=== PATIENT | male | born 1960 | race African-American/Black ===

== ENCOUNTER 2016-09-17 11:38 | Inpatient (IN) | payer OTHER ==
[2016-09-17 12:08] VITALS: BMI 25.0
[2016-09-17] MEDS ORDERED: LOPERAMIDE HCL 2 MG CAPSULE PO PRN (15:02)
[2016-09-17] MEDS ORDERED: P-EPHED 60MG/TRIPROLIDI 2.5MG TABLET PO PRN (15:02)
[2016-09-17] MEDS ORDERED: chlordiazePOXIDE HCL 25 MG CAPSULE PO PRN (15:02)
[2016-09-17] MEDS ORDERED: hydrOXYzine PAMOATE 50 MG CAPSULE (FP) PO PRN (15:02)
[2016-09-17] MEDS ORDERED: guaiFENesin/D-METHORPHAN HB 10 ML UNIT-DOSE CUPS PO PRN (15:02)
[2016-09-17] MEDS ORDERED: MAGNESIUM HYDROX 2400MG/30ML ORAL SUSPENSION 30 ML CUP PO PRN (15:02)
[2016-09-17] MEDS ORDERED: MAG HYDROX/AL HYDROX/SIMETH 30 ML UNIT-DOSE CUP PO PRN (15:02)
[2016-09-17] MEDS ORDERED: MENTHOL/PHENOL 1 EACH UD MM PRN (15:02)
[2016-09-17] MEDS ORDERED: NICOTINE POLACRILEX 2 MG GUM BUC PRN (15:02)
[2016-09-17] MEDS ORDERED: MAGNESIUM CITRATE 300 ML BOTTLE PO PRN (15:02)
[2016-09-17] MEDS ORDERED: ACETAMINOPHEN 325 MG TABLET (FP) PO PRN (15:02)
--- NOTE | 2016-09-17 15:02 | HP ---
CIWA Score - CIWA Score Nausea/Vomitin Muscle Tremors: 4-Moderate,w/Arms Extend Anxiety: 4-Mod. Anxious/Guarded Agitation: 4-Moderately Restless Paroxysmal Sweats: 3 Orientation: 0-Oriented Tacttile Disturbances: 1-Very Mild Itch/Numbness Auditory Disturbances: 0-None Visual Disturbances: 0-None Headache: 1-Very Mild CIWA-Ar Total Score: 20 Admission ROS BHS - HPI Chief Complaint: alcohol withdrawwal sx, requesting inpatient detox from alcohol and cocaine Allergies/Adverse Reactions: Allergies Allergy/AdvReac Type Severity Reaction Status Date / Time No Known Allergies Allergy Verified 09/17/16 13:08 History of Present Illness: 56 yo m with h/o chronic alcoholism and cocaine dependence [facility] as he has ISELA - sweats, tremors, h/o seizures, no on any medication 10years ago, nausea, smokes $80 cocaine daily last used alcohol and cocaine today. smokes 1/2 PPD PMHX asthma has pump he uses. no suicidal ideation, no psychiatric illness, no suicide attempts the past. Exam Limitations: No Limitations - Ebola screening Have you traveled outside of the country in the last 21 days: No Have you had contact with anyone from an Ebola affected area: No Have you been sick,other than usual withdrawal symptoms: No Do you have a fever: No - Review of Systems Constitutional: Diaphoresis, Loss of Appetite, Changes in sleep, Weakness, Weight Stable EENT: reports: No Symptoms Reported Respiratory: reports: No Symptoms reported, Wheezing (when he has asthma) Cardiac: reports: No Symptoms Reported GI: reports: Diarrhea, Nausea, Poor Appetite, Poor Fluid Intake, Vomiting : reports: No Symptoms Reported Musculoskeletal: reports: No Symptoms Reported Integumentary: reports: Flushing, Sweating Neuro: reports: No Symptoms reported Endocrine: reports: No Symptoms Reported Hematology: reports: No Symptoms Reported Psychiatric: reports: No Sypmtoms Reported Other Systems: Reviewed and Negative Patient History - Patient Medical History Hx Anemia: No Hx Asthma: Yes Hx Chronic Obstructive Pulmonary Disease (COPD): No Hx Cancer: No Hx Cardiac Disorders: No Hx Congestive Heart Failure: No Hx Hypertension: No Hx Hypercholesterolemia: No Hx Pacemaker: No HX Cerebrovascular Accident: No Hx Seizures: No Hx Diabetes: No Hx Gastrointestinal Disorders: No Hx Liver Disease: No Hx Genitourinary Disorders: No Hx Sexually Transmitted Disorders: No Hx Renal Disease (ESRD): No Hx Thyroid Disease: No Hx Human Immunodeficiency Virus (HIV): No Hx Hepatitis C: No Hx Depression: No Hx Suicide Attempt: No Hx Bipolar Disorder: No Hx Schizophrenia: No - Patient Surgical History Past Surgical History: No Hx Neurologic Surgery: No Hx Cataract Extraction: No Hx Cardiac Surgery: No Hx Lung Surgery: No Hx Breast Surgery: No Hx Breast Biopsy: No Hx Abdominal Surgery: No Hx Appendectomy: No Hx Cholecystectomy: No Hx Genitourinary Surgery: No Hx Section: No Hx Orthopedic Surgery: No Anesthesia Reaction: No - PPD History Previous Implant?: Yes Documented Results: Negative w/o proof Date: 05/23/13 PPD to be Administered?: Yes - Reproductive History Patient is a Female of Child Bearing Age (11 -55 yrs old): No Patient : No - Smoking Cessation Smoking history: Current every day smoker Have you smoked in the past 12 months: Yes Aproximately how many cigarettes per day: 10 Cigars Per Day: 0 Hx Chewing Tobacco Use: No Initiated information on smoking cessation: Yes 'Breaking Loose' booklet given: 09/17/16 - Substance & Tx. History Hx Alcohol Use: Yes Hx Substance Use: Yes Substance Use Type: Alcohol, Cocaine Hx Substance Use Treatment: Yes (h/o inpatient detox did not complete, [facility]) - Substances Abused Cocaine Route: Smoking Frequency: Daily Amount used: $100.00 Age of first use: 28 Date of Last Use: 09/16/16 Alcohol Route: Oral Frequency: Daily Amount used: 6 18oz Beer, Age of first use: 16 Date of Last Use: 09/17/16 Family Disease History - Family Disease History Family Disease History: Other: Father (alcohol), Mother (heroin overdose) Admission Physical Exam BHS - Vital Signs Vital Signs: Vital Signs - 24 hr 09/17/16 12:02 Temperature 97.1 F L Pulse Rate 79 Respiratory 20 Rate Blood Pressure 129/81 - Physical General Appearance: Yes: Nourished, Appropriately Dressed, Disheveled, Thin, Tremorous, Irritable, Sweating, Anxious HEENTM: Yes: Within Normal Limits, EOMI, Hearing grossly Normal, Normal ENT Inspection, Normocephalic, Normal Voice, FELIPE, Pharynx Normal Respiratory: Yes: Within Normal Limits, Chest Non-Tender, Lungs Clear, Normal Breath Sounds, No Respiratory Distress, No Accessory Muscle Use Neck: Yes: Within Normal Limits, No masses,lesions,Nodules, Supple, Trachea in good position Breast: Yes: Breast Exam Deferred, Breasts Symetrical Cardiology: Yes: Within Normal Limits, Regular Rhythm, Regular Rate, S1, S2 Abdominal: Yes: Within Normal Limits, Normal Bowel Sounds, Non Tender, Soft, Protuberent Genitourinary: Yes: Within Normal Limits Back: Yes: Within Normal Limits, Normal Inspection Musculoskeletal: Yes: Within Normal Limits, full range of Motion, Gait Steady Extremities: Yes: Normal Capillary Refill, Normal Inspection, Normal Range of Motion, Tremors Neurological: Yes: case filler II-XII NML intact, Fully Oriented, Alert, Motor Strength 5/5, Normal Response, Depressed Affect Integumentary: Yes: Normal Color, Warm, Diaphoresis, Moist Lymphatic: Yes: Within Normal Limits - Addiitonal Findings: withdrwal sx present, - Diagnostic (1) Asthma Current Visit: No Status: Active (2) Alcohol dependence with uncomplicated withdrawal Current Visit: Yes Status: Acute (3) Cannabis dependence, uncomplicated Current Visit: Yes Status: Acute (4) Cocaine dependence Current Visit: Yes Status: Acute (5) Nicotine dependence Current Visit: Yes Status: Acute Cleared for Admission [facility] - Detox or Rehab [facility] Level of Care: Medically Managed Detox Regimen/Protocol: Librium [facility] Breath Alcohol Content Breath Alcohol Content: 0 Urine Drug Screen - Results Drug Screen Negative: No Urine Drug Screen Results: REYNOLD-Cocaine
[2016-09-17] MEDS ORDERED: ALBUTEROL SO4 6.7 GM HFA INHALER IH PRN (15:06)
[2016-09-17] MEDS ORDERED: chlordiazePOXIDE HCL 25 MG CAPSULE PO ONE (15:23)
[2016-09-17] MEDS: NICOTINE 14 MG/24 HOURS TOPICAL PATCH TD SCH (17:28)
[2016-09-17] MEDS: chlordiazePOXIDE HCL 25 MG CAPSULE PO SCH ×2 (17:30→22:04)
[2016-09-17 20:32] LABS: URINE APPEARANCE CLEAR; URINE BILIRUBIN NEGATIVE (NEGATIVE); URINE BLOOD NEGATIVE (NEGATIVE); URINE COLOR STRAW; URINE GLUCOSE (UA) NEGATIVE (NEGATIVE); URINE KETONE NEGATIVE (NEGATIVE); URINE LEUK ESTERASE NEGATIVE (NEGATIVE); URINE NITRITE NEGATIVE (NEGATIVE); URINE PROTEIN NEGATIVE (NEGATIVE); URINE UROBILINOGEN NEGATIVE E.U./dl (0.2-1.0)
[2016-09-17] MEDS: diphenhydrAMINE HCL 50 MG CAPSULE PO PRN (22:03)
[2016-09-17] MEDS: THIAMINE HCL 100 MG TABLET (FP) PO SCH (22:04)
[2016-09-18] MEDS: chlordiazePOXIDE HCL 25 MG CAPSULE PO SCH ×4 (05:42→22:03)
[2016-09-18] MEDS: IBUPROFEN 400 MG TABLET (FP) PO PRN ×2 (05:44→17:18)
[2016-09-18] MEDS: PRENATAL VITAMINS W/ FOLIC ACID TABLET (FP) PO SCH (10:07)
[2016-09-18] MEDS: NICOTINE 14 MG/24 HOURS TOPICAL PATCH TD SCH (10:08)
[2016-09-18 10:11] LABS: MCH 27.9 pg (25.7-33.7); MCHC 32.3 g/dl (32.0-35.9); MEAN CELL VOLUME 86.4 fl (80-96); MEAN PLT VOLUME 9.6 fl (7.5-11.1); PLATELET COUNT 180 K/MM3 (134-434); RDW 15.5 % (11.9-15.9)
[2016-09-18 10:43] LABS: ALBUMIN 3.9 g/dl (3.4-5.0); ALK PHOS 73 U/L (45-117); ANION GAP 10 (8-16); BILIRUBIN,TOTAL 0.4 mg/dL (0.2-1.0); CALCIUM 8.8 mg/dL (8.5-10.1); CO2 26 mmol/L (21-32); GLUCOSE,RANDOM 82 mg/dL (74-106); SGOT/AST 21 U/L (15-37); SGPT/ALT 16 U/L (12-78); TOT PROT 7.1 g/dl (6.4-8.2)
--- NOTE | 2016-09-18 11:14 | CONSULT ---
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 Substance Abuse History: - Smoking Cessation. Smoking history: Current every day smoker. Have you smoked in the past 12 months: Yes. Aproximately how many cigarettes per day: 10. Cigars Per Day: 0. Hx Chewing Tobacco Use: No. Initiated information on smoking cessation: Yes. 'Breaking Loose' booklet given : 09/17/16. - Substance & Tx. History. Hx Alcohol Use: Yes. Hx Substance Use : Yes. Substance Use Type: Alcohol, Cocaine. Hx Substance Use Treatment: Yes ( h/o inpatient detox did not complete, [facility]). - Substances Abused. Cocaine. Route: Smoking. Frequency: Daily. Amount used : $100.00. Age of first use: 28. Date of Last Use: 09/16/16. Alcohol. Route: Oral. Frequency: Daily. Amount used: 6 18oz Beer,. Age of first use: 16. Date of Last Use: 09/17/16. Confirmed by the patient in my interview. Medical History: Bronchial asthma. Psychiatric History: Patient denies. Physical/Sexual Abuse/Trauma History: Patient denies. Additional Comment: Urine Drug Screen Results: REYNOLD-Cocaine.Noted. Mental Status Exam - Mental Status Exam Alert and Oriented to: Time, Place, Person Cognitive Function: Good Patient Appearance: Well Groomed Mood: Hopeful, Euthymic Affect: Appropriate, Normal Range Patient Behavior: Fatigued, Talkative, Appropriate, Cooperative Speech Pattern: Clear, Appropriate Voice Loudness: Normal Thought Process: Intact, Goal Oriented Thought Disorder: Not Present Hallucinations: Denies Suicidal Ideation: Denies Homicidal Ideation: Denies Insight/Judgement: Poor Sleep: Fair Appetite: Fair Muscle strength/Tone: Normal Gait/Station: Normal Psychiatric Findings - Problem List ([place] 1, 2,3) (1) Alcohol dependence with uncomplicated withdrawal Current Visit: Yes Status: Acute (2) Cocaine dependence Current Visit: Yes Status: Acute (3) Nicotine dependence Current Visit: Yes Status: Acute (4) Asthma Current Visit: No Status: Chronic - Initial Treatment Plan Initial Treatment Plan: Psychoeducation.Detoxification.Observation.
--- NOTE | 2016-09-18 12:26 | PN ---
S CIWA - CIWA Score Nausea/Vomitin-No Nausea/No Vomiting Muscle Tremors: 3 Anxiety: 4-Mod. Anxious/Guarded Agitation: 4-Moderately Restless Paroxysmal Sweats: 3 Orientation: 0-Oriented Tacttile Disturbances: 0-None Auditory Disturbances: 0-None Visual Disturbances: 0-None Headache: 0-None Present CIWA-Ar Total Score: 14 BHS Progress Note (SOAP) Subjective: anxiety,tremors,sweating,interrupted sleep,restless Objective: 09/18/16 12:23 Vital Signs - 8 hr 09/18/16 09/18/16 06:13 09:30 Temperature 97.1 F L 97.8 F Pulse Rate 61 69 Respiratory 18 16 Rate Blood Pressure 97/71 88/65 Laboratory Tests 09/17/16 09/18/16 09/18/16 19:45 06:00 06:00 WBC 4.0 RBC 5.19 Hgb 14.5 Hct 44.9 MCV 86.4 MCHC 32.3 RDW 15.5 Plt Count 180 MPV 9.6 Sodium 143 Potassium 4.2 Chloride 107 Carbon Dioxide 26 Anion Gap 10 BUN 9 D Creatinine 1.0 Creat Clearance w eGFR > 60 Random Glucose 82 Calcium 8.8 Total Bilirubin 0.4 D AST 21 ALT 16 Alkaline Phosphatase 73 Total Protein 7.1 Albumin 3.9 Urine Color Straw Urine Appearance Clear Urine pH 5.0 Ur Specific [place] 1.008 Urine Protein Negative Urine Glucose (UA) Negative Urine Ketones Negative Urine Blood Negative Urine Nitrite Negative Urine Bilirubin Negative Urine Urobilinogen Negative Ur Leukocyte Esterase Negative labs noted Assessment: 09/18/16 12:23 continue detox Plan: continue detox
--- NOTE | 2016-09-18 12:41 | EKG ---
Test Reason : Blood Pressure : / mmHG Vent. Rate : 069 BPM Atrial Rate : 069 BPM P-R Int : 158 ms QRS Dur : 080 ms QT Int : 376 ms P-R-T Axes : 143 -24 125 degrees QTc Int : 402 ms UNUSUAL P AXIS, POSSIBLE ECTOPIC ATRIAL RHYTHM SEPTAL INFARCT , AGE UNDETERMINED LATERAL INFARCT , AGE UNDETERMINED ABNORMAL ECG NO PREVIOUS ECGS AVAILABLE Confirmed by BERLIN CANADA MD ([id number]) on 09/18/2016 12:41:45 PM Referred By: Confirmed By:BERLIN CANADA MD
[2016-09-18] MEDS: diphenhydrAMINE HCL 50 MG CAPSULE PO PRN (22:03)
[2016-09-18] MEDS: THIAMINE HCL 100 MG TABLET (FP) PO SCH (22:03)
[2016-09-19] MEDS: chlordiazePOXIDE HCL 25 MG CAPSULE PO SCH ×2 (06:10→10:02)
[2016-09-19] MEDS: IBUPROFEN 400 MG TABLET (FP) PO PRN ×2 (08:33→22:04)
[2016-09-19] MEDS: NICOTINE 14 MG/24 HOURS TOPICAL PATCH TD SCH (10:02)
[2016-09-19] MEDS: PRENATAL VITAMINS W/ FOLIC ACID TABLET (FP) PO SCH (10:02)
--- NOTE | 2016-09-19 10:53 | PN ---
S CIWA - CIWA Score Nausea/Vomitin-No Nausea/No Vomiting Muscle Tremors: 3 Anxiety: 2 Agitation: 2 Paroxysmal Sweats: 3 Orientation: 0-Oriented Tacttile Disturbances: 0-None Auditory Disturbances: 0-None Visual Disturbances: 0-None Headache: 0-None Present CIWA-Ar Total Score: 10 BHS Progress Note (SOAP) Subjective: SWEATING,INTERRUPTED SLEEP,ANXIETY,TREMORS,RESTLESS Objective: 09/19/16 10:50 Vital Signs - 8 hr 09/19/16 09/19/16 09/19/16 03:24 06:04 09:13 Temperature 96.2 F L 97.0 F L Pulse Rate 70 66 Respiratory 18 16 18 Rate Blood Pressure 113/74 102/70 Laboratory Tests 09/17/16 09/18/16 09/18/16 19:45 06:00 06:00 WBC 4.0 RBC 5.19 Hgb 14.5 Hct 44.9 MCV 86.4 MCHC 32.3 RDW 15.5 Plt Count 180 MPV 9.6 Sodium 143 Potassium 4.2 Chloride 107 Carbon Dioxide 26 Anion Gap 10 BUN 9 D Creatinine 1.0 Creat Clearance w eGFR > 60 Random Glucose 82 Calcium 8.8 Total Bilirubin 0.4 D AST 21 ALT 16 Alkaline Phosphatase 73 Total Protein 7.1 Albumin 3.9 Urine Color Straw Urine Appearance Clear Urine pH 5.0 Ur Specific [place] 1.008 Urine Protein Negative Urine Glucose (UA) Negative Urine Ketones Negative Urine Blood Negative Urine Nitrite Negative Urine Bilirubin Negative Urine Urobilinogen Negative Ur Leukocyte Esterase Negative RPR Titer 09/18/16 06:00 WBC RBC Hgb Hct MCV MCHC RDW Plt Count MPV Sodium Potassium Chloride Carbon Dioxide Anion Gap BUN Creatinine Creat Clearance w eGFR Random Glucose Calcium Total Bilirubin AST ALT Alkaline Phosphatase Total Protein Albumin Urine Color Urine Appearance Urine pH Ur Specific [place] Urine Protein Urine Glucose (UA) Urine Ketones Urine Blood Urine Nitrite Urine Bilirubin Urine Urobilinogen Ur Leukocyte Esterase RPR Titer Nonreactive LABS NOTED Assessment: 09/19/16 10:52 WITHDRAWAL SX. Plan: CONTINUE DETOX
[2016-09-19] MEDS: chlordiazePOXIDE 5 MG CAPSULE PO SCH ×2 (17:44→22:05)
[2016-09-19] MEDS: diphenhydrAMINE HCL 50 MG CAPSULE PO PRN (22:05)
[2016-09-19] MEDS: THIAMINE HCL 100 MG TABLET (FP) PO SCH (22:05)
[2016-09-20] MEDS: chlordiazePOXIDE 5 MG CAPSULE PO SCH ×2 (05:54→10:09)
[2016-09-20 09:45] VITALS: BP 112/75; PULSE 78; TEMP 98.1
--- NOTE | 2016-09-20 09:49 | PN ---
BHS Progress Note (SOAP) Subjective: SWEATS, INTERRUPTED SLEEP, ANXIETY, TREMORS, NAUSEA Objective: 09/20/16 09:48 Vital Signs - 8 hr 09/20/16 09/20/16 09/20/16 03:32 06:18 09:44 Temperature 96.1 F L 98.1 F Pulse Rate 69 78 Respiratory 18 16 20 Rate Blood Pressure 100/70 112/75 Laboratory Tests 09/17/16 09/18/16 09/18/16 19:45 06:00 06:00 WBC 4.0 RBC 5.19 Hgb 14.5 Hct 44.9 MCV 86.4 MCHC 32.3 RDW 15.5 Plt Count 180 MPV 9.6 Sodium 143 Potassium 4.2 Chloride 107 Carbon Dioxide 26 Anion Gap 10 BUN 9 D Creatinine 1.0 Creat Clearance w eGFR > 60 Random Glucose 82 Calcium 8.8 Total Bilirubin 0.4 D AST 21 ALT 16 Alkaline Phosphatase 73 Total Protein 7.1 Albumin 3.9 Urine Color Straw Urine Appearance Clear Urine pH 5.0 Ur Specific [place] 1.008 Urine Protein Negative Urine Glucose (UA) Negative Urine Ketones Negative Urine Blood Negative Urine Nitrite Negative Urine Bilirubin Negative Urine Urobilinogen Negative Ur Leukocyte Esterase Negative RPR Titer 09/18/16 06:00 WBC RBC Hgb Hct MCV MCHC RDW Plt Count MPV Sodium Potassium Chloride Carbon Dioxide Anion Gap BUN Creatinine Creat Clearance w eGFR Random Glucose Calcium Total Bilirubin AST ALT Alkaline Phosphatase Total Protein Albumin Urine Color Urine Appearance Urine pH Ur Specific [place] Urine Protein Urine Glucose (UA) Urine Ketones Urine Blood Urine Nitrite Urine Bilirubin Urine Urobilinogen Ur Leukocyte Esterase RPR Titer Nonreactive Assessment: 09/20/16 09:48 WITHDRAWAL SX Plan: CONT DETOX
[2016-09-20] MEDS: PRENATAL VITAMINS W/ FOLIC ACID TABLET (FP) PO SCH (10:09)
[2016-09-20] MEDS: NICOTINE 14 MG/24 HOURS TOPICAL PATCH TD SCH (10:09)
--- NOTE | 2016-09-20 10:29 | PN ---
[facility] Progress Note Note: Patient reports he needs to leave to go home today, family scheduled [employer] pick[employer] to attend [place] in am, patient has not symptoms of withdrwal after AM medications, bp stable no tachycadia. medically stable for regualr discharge
--- NOTE | 2016-09-20 10:31 | DS ---
[facility] Detox Discharge Summary Admission Date: 09/17/16 Discharge Date: 09/20/16 - History Present History: Alcohol Dependence, Cannabis Dependence, Cocaine Dependence Pertinent Past History: nicotine dependence w withdrawal sx, anxiety, depression and insomnia - Physical Exam Results Vital Signs: Vital Signs Temperature 98.1 F 09/20/16 09:44 Pulse Rate 78 09/20/16 09:44 Respiratory Rate 20 09/20/16 09:44 Blood Pressure 112/75 09/20/16 09:44 O2 Sat by Pulse Oximetry (%) Pertinent Admission Physical Exam Findings: withdrawal sx - Treatment Hospital Course: Detox Protocol Followed, Detoxed Safely, Responded well, Discharged Condition Good, Rehab Referral Accepted Patient has Accepted a Rehab Referral to: Yes - Medication Discharge Medications: Ambulatory Orders Albuterol Sulfate Inhaler - [Ventolin HFA Inhaler -] 1 - 2 inh PO Q4H #1 inhaler 09/20/16 - Diagnosis (1) Asthma Current Visit: No Status: Chronic (2) Alcohol dependence with uncomplicated withdrawal Current Visit: Yes Status: Acute (3) Cannabis dependence, uncomplicated Current Visit: Yes Status: Acute (4) Cocaine dependence Current Visit: Yes Status: Acute (5) Nicotine dependence Current Visit: Yes Status: Acute - AMA Did Patient Leave Against Medical Advice: No
[2016-09-20] MEDS ORDERED: chlordiazePOXIDE HCL 10 MG CAPSULE PO SCH (17:00)
== END 2016-09-20 10:50 | disposition home or self-care (01) | DRG 774 ==
LOC: YASAS 11:38 → Y3N 14:52
PROVIDERS: ADMIT Internal Medicine; ATTEND Internal Medicine
PROC: HZ2ZZZZ Detoxification Services for Substance Abuse Treatment (ICD-10-PCS; principal; 2016-09-20)
DX: F10.230 Alcohol dependence with withdrawal, uncomplicated (principal); F14.20 Cocaine dependence, uncomplicated; F12.20 Cannabis dependence, uncomplicated; F17.210 Nicotine dependence, cigarettes, uncomplicated; J45.909 Unspecified asthma, uncomplicated
CPT/HCPCS: 36415; 80053; 81003; 85027; 86593; 93005; 93010

== ENCOUNTER 2020-11-28 10:48 | Inpatient (IN) | payer OTHER ==
[2020-11-28 12:10] VITALS: BMI 25.1
[2020-11-28] MEDS ORDERED: chlordiazePOXIDE HCL 25 MG CAPSULE PO PRN (12:10)
[2020-11-28] MEDS ORDERED: MENTHOL/PHENOL 1 EACH UD MM PRN (12:10)
[2020-11-28] MEDS ORDERED: MAG HYDROX/AL HYDROX/SIMETH 30 ML UNIT-DOSE CUP PO PRN (12:10)
[2020-11-28] MEDS ORDERED: METHOCARBAMOL 500 MG TABLET PO PRN (12:10)
[2020-11-28] MEDS ORDERED: NICOTINE POLACRILEX 2 MG GUM BUC PRN (12:10)
[2020-11-28] MEDS ORDERED: IBUPROFEN 400 MG TABLET (FP) PO PRN (12:10)
[2020-11-28] MEDS ORDERED: MAGNESIUM CITRATE 300 ML BOTTLE PO PRN (12:10)
[2020-11-28] MEDS ORDERED: ONDANSETRON *ODT* 4 MG TABLET SL PRN (12:10)
[2020-11-28] MEDS ORDERED: BISMUTH SUBSALICYLATE 262 MG/15 ML BTL PO PRN (12:10)
[2020-11-28] MEDS ORDERED: MAGNESIUM HYDROX 2400MG/30ML ORAL SUSPENSION 30 ML CUP PO PRN (12:10)
[2020-11-28] MEDS ORDERED: ACETAMINOPHEN 325 MG TABLET (FP) PO PRN ×2 (12:10)
[2020-11-28] MEDS: chlordiazePOXIDE HCL 25 MG CAPSULE PO SCH ×3 (12:30→22:13)
[2020-11-28] MEDS: ALBUTEROL SO4 HFA INHALER IH SCH ×3 (12:31→22:13)
[2020-11-28] MEDS: hydrOXYzine PAMOATE 25 MG CAPSULE (FP) PO SCH ×3 (13:15→22:13)
[2020-11-28 14:48] LABS: HEMATOCRIT 41.1 % (35.4-49); HEMOGLOBIN 13.6 GM/dL (11.7-16.9); MCH 27.5 pg (25.7-33.7); MEAN CELL VOLUME 83.5 fl (80-96); MEAN PLT VOLUME 8.7 fl (7.5-11.1); PLATELET COUNT 247 K/MM3 (134-434); RBC 4.93 M/mm3 (4.00-5.60); RDW 14.5 % (11.9-15.9); WHITE BLOOD COUNT 4.1 K/mm3 (4.0-10.0)
[2020-11-28 14:58] LABS: BLOOD UREA NITROGEN 14.4 mg/dL (7-18); CALCIUM 9.1 mg/dL (8.5-10.1)
[2020-11-28 14:59] LABS: ALBUMIN 3.8 g/dl (3.4-5.0)
[2020-11-28 15:01] LABS: CREATININE 0.9 mg/dL (0.55-1.3)
[2020-11-28 15:03] LABS: BILIRUBIN,TOTAL 0.3 mg/dL (0.2-1); TOT PROT 7.1 g/dl (6.4-8.2)
[2020-11-28] MEDS ORDERED: MELATONIN 5 MG TABLETS PO SCH (22:00)
[2020-11-28] MEDS: THIAMINE HCL 100 MG TABLET (FP) PO SCH (22:13)
[2020-11-29] MEDS: ALBUTEROL SO4 HFA INHALER IH SCH ×6 (02:13→22:35)
[2020-11-29] MEDS: hydrOXYzine PAMOATE 25 MG CAPSULE (FP) PO SCH ×5 (05:44→22:39)
[2020-11-29] MEDS: chlordiazePOXIDE HCL 25 MG CAPSULE PO SCH ×4 (05:45→23:15)
[2020-11-29] MEDS: NICOTINE 21 MG/24 HOURS TOPICAL PATCH TD SCH (10:14)
[2020-11-29] MEDS: PRENATAL VITAMINS W/ FOLIC ACID TABLET (FP) PO SCH (10:14)
[2020-11-29] MEDS: THIAMINE HCL 100 MG TABLET (FP) PO SCH (22:38)
[2020-11-30] MEDS: ALBUTEROL SO4 HFA INHALER IH SCH ×6 (00:38→22:24)
[2020-11-30] MEDS: chlordiazePOXIDE HCL 25 MG CAPSULE PO SCH ×4 (05:39→22:22)
[2020-11-30] MEDS: hydrOXYzine PAMOATE 25 MG CAPSULE (FP) PO SCH ×5 (05:39→22:24)
[2020-11-30] MEDS: PRENATAL VITAMINS W/ FOLIC ACID TABLET (FP) PO SCH (10:43)
[2020-11-30] MEDS: NICOTINE 21 MG/24 HOURS TOPICAL PATCH TD SCH (10:45)
[2020-11-30] MEDS: THIAMINE HCL 100 MG TABLET (FP) PO SCH (22:23)
[2020-11-30] MEDS: MELATONIN 5 MG TABLETS PO PRN (22:24)
[2020-12-01] MEDS ORDERED: chlordiazePOXIDE HCL 10 MG CAPSULE PO PRN
[2020-12-01] MEDS: ALBUTEROL SO4 HFA INHALER IH SCH ×6 (01:35→22:10)
[2020-12-01] MEDS: hydrOXYzine PAMOATE 25 MG CAPSULE (FP) PO SCH ×5 (06:51→22:13)
[2020-12-01] MEDS: chlordiazePOXIDE HCL 10 MG CAPSULE PO SCH ×4 (06:52→22:10)
[2020-12-01] MEDS: PRENATAL VITAMINS W/ FOLIC ACID TABLET (FP) PO SCH (10:08)
[2020-12-01] MEDS: NICOTINE 21 MG/24 HOURS TOPICAL PATCH TD SCH (10:09)
[2020-12-01 14:08] LABS: SARS-CoV-2 NAA Not Detected (Not Detected)
[2020-12-01] MEDS: MELATONIN 5 MG TABLETS PO PRN (22:11)
[2020-12-01] MEDS: THIAMINE HCL 100 MG TABLET (FP) PO SCH (22:11)
[2020-12-02] MEDS: ALBUTEROL SO4 HFA INHALER IH SCH ×6 (01:31→20:25)
[2020-12-02] MEDS: chlordiazePOXIDE HCL 10 MG CAPSULE PO SCH ×2 (06:33→17:50)
[2020-12-02] MEDS: hydrOXYzine PAMOATE 25 MG CAPSULE (FP) PO SCH ×5 (06:33→22:23)
[2020-12-02] MEDS: NICOTINE 21 MG/24 HOURS TOPICAL PATCH TD SCH (12:06)
[2020-12-02] MEDS: PRENATAL VITAMINS W/ FOLIC ACID TABLET (FP) PO SCH (12:06)
[2020-12-02] MEDS: THIAMINE HCL 100 MG TABLET (FP) PO SCH (22:23)
[2020-12-03] MEDS ORDERED: chlordiazePOXIDE HCL 10 MG CAPSULE PO ONE (05:00)
[2020-12-03] MEDS: hydrOXYzine PAMOATE 25 MG CAPSULE (FP) PO SCH ×2 (05:22→10:05)
[2020-12-03] MEDS: ALBUTEROL SO4 HFA INHALER IH SCH ×2 (05:24→10:04)
[2020-12-03 09:42] VITALS: BP 128/72; PULSE 94; TEMP 98.3
[2020-12-03] MEDS: PRENATAL VITAMINS W/ FOLIC ACID TABLET (FP) PO SCH (10:04)
[2020-12-03] MEDS: NICOTINE 21 MG/24 HOURS TOPICAL PATCH TD SCH (10:04)
== END 2020-12-03 10:38 | disposition home or self-care (01) | DRG 774 ==
LOC: YASAS 10:48 → UNDOADMIN 12:04 → Y6N 12:04
PROVIDERS: ADMIT Allergy & Immunology; ATTEND Allergy & Immunology
PROC: HZ2ZZZZ Detoxification Services for Substance Abuse Treatment (ICD-10-PCS; principal; 2020-11-28)
DX: F10.230 Alcohol dependence with withdrawal, uncomplicated (principal); F14.20 Cocaine dependence, uncomplicated; F12.20 Cannabis dependence, uncomplicated; F17.210 Nicotine dependence, cigarettes, uncomplicated; F19.282 Other psychoactive substance dependence with psychoactive substance-induced sleep disorder; F19.24 Other psychoactive substance dependence with psychoactive substance-induced mood disorder; J45.909 Unspecified asthma, uncomplicated
CPT/HCPCS: 36415; 80053; 85027; 86780; C9803; U0003; U0005